=== PATIENT | female | born 1940 | race Caucasian/White ===

== ENCOUNTER 2019-04-18 19:49 | Inpatient (IN) | payer MEDICARE ==
[~2019-04-18] VITALS: Ht 168.9 cm; Wt 87.2 kg
[2019-04-18] MEDS ORDERED: SODIUM CHLORIDE FLUSH 10ML SYR IVF ONE (20:00)
--- NOTE | 2019-04-18 20:02 | NUR ---
BIB AMBULANCE FROM [place] FOR SUBDURAL HEMATOMA THAT HAPPENED ABOUT 1-2 WEEKS AGO. GENERAL WEAKNESS X2 WEEKS AND SLIPPING OUT OF BED WHILE ATTEMPTING TO TRANSFER. PT STATES SHE HAS NOT LOST CONSCIOUSNESS. CONNECTED TO MONITORING. FALL PRECAUTIONS IN PLACE. CALL LIGHT IN REACH.
[2019-04-18 20:21] LABS: BASOPHILS # (AUTO) 0.02 x10^3/uL (0-0.1); BASOPHILS % (AUTO) 0 % (0-1); EOSINOPHILS # (AUTO) 0.04 x10^3/uL (0-0.4); EOSINOPHILS % (AUTO) 1 % (1-7); LYMPHOCYTES # (AUTO) 1.18 x10^3/uL (1-3.4); LYMPHOCYTES % (AUTO) 21 % (22-44); MD NO; MEAN CORPUSCULAR HEMOGLOBIN 30.6 pg (27.0-34.8); MEAN CORPUSCULAR HGB CONC 33.1 g/dL (32.4-35.8); MEAN CORPUSCULAR VOLUME 92.5 fL (80-100); MEAN PLATELET VOLUME 7.1 fL (7.4-10.4); MONOCYTES # (AUTO) 0.38 x10^3/uL (0.2-0.8); MONOCYTES % (AUTO) 7 % (2-9); NEUTROPHILS # (AUTO) 4.05 x10^3/uL (1.8-6.8); NEUTROPHILS % (AUTO) 72 % (42-75); PLATELET COUNT 187 x10^3/uL (130-400); RED BLOOD COUNT 3.45 x10^6/uL (3.82-5.3); RED CELL DISTRIBUTION WIDTH 17.3 % (9.6-15.2)
[2019-04-18 20:29] LABS: INTERNATIONAL NORMALIZED RATIO 1.01 (0.93-1.1); PROTHROMBIN TIME 10.6 Seconds (9.6-11.5)
[2019-04-18 20:30] LABS: ALBUMIN 3.1 g/dL (3.4-5.0); ANION GAP 4 mmol/L (5-15); CALCIUM 8.4 mg/dL (8.5-10.1); CHLORIDE 109 mmol/L (98-107); CREATININE 1.16 mg/dL (0.55-1.02)
--- NOTE | 2019-04-18 20:32 | NUR ---
ALL RESULTS ARE BACK AT THIS TIME. CHART UP FOR RECHECK.
--- NOTE | 2019-04-18 20:59 | NUR ---
PT PASSED SWALLOW EVAL. GIVEN SANDWICH FOR DINNER. NADN. CALL LIGHT IN REACH.
--- NOTE | 2019-04-18 21:59 | NUR ---
REPORT GIVEN TO JAROCHO MUÑOZ
[2019-04-18] MEDS ORDERED: SODIUM CHLORIDE FLUSH 10ML SYR IVF PRN (22:00)
[2019-04-18] MEDS ORDERED: LABETALOL 5MG/ML, 20ML IV PRN (22:30)
[2019-04-18] MEDS ORDERED: POLYETHYLENE GLYCOL 17 GM PACKET PO PRN (22:30)
[2019-04-18] MEDS ORDERED: BISACODYL 10 MG SUPP PR PRN (22:30)
[2019-04-18] MEDS ORDERED: ONDANSETRON 2MG/ML, 2ML IVPush PRN (22:30)
[2019-04-18] MEDS ORDERED: DEXAMETHASONE 4 MG/ML, 1ML IV ONE (23:00)
[2019-04-18] MEDS ORDERED: PLEASE ENTER ALLERGIES MC SCH ×2 (23:00)
[2019-04-18] MEDS: LEVETIRACETAM 500 MG in SODIUM CHLORIDE 0.9% 100 ML IV SCH (23:40)
[2019-04-18 23:48] LABS: HEMOGLOBIN A1C 5.5 % (4.2-6.3)
[2019-04-19] MEDS ORDERED: [UNRECOGNIZED DRUG - REMARK] MC SCH (01:30)
[2019-04-19 02:11] VITALS: BP 112/48
[2019-04-19] MEDS ORDERED: BUPIVACAINE/PF 0.5% ONE (04:11)
[2019-04-19] MEDS ORDERED: BACITRACIN 50,000 UNIT ONE (04:12)
[2019-04-19] MEDS ORDERED: EPINEPHRINE 1 MG/ML, 1ML ONE (04:12)
[2019-04-19] MEDS ORDERED: THROMBIN SPRAY 20,000 UNIT SPRAY TP ONE (04:22)
[2019-04-19 04:46] LABS: BASOPHILS # (AUTO) 0.01 x10^3/uL (0-0.1); BASOPHILS % (AUTO) 0 % (0-1); EOSINOPHILS # (AUTO) 0.03 x10^3/uL (0-0.4); EOSINOPHILS % (AUTO) 1 % (1-7); LYMPHOCYTES # (AUTO) 0.62 x10^3/uL (1-3.4); LYMPHOCYTES % (AUTO) 11 % (22-44); MD NO; MEAN CORPUSCULAR HEMOGLOBIN 30.8 pg (27.0-34.8); MEAN CORPUSCULAR HGB CONC 32.9 g/dL (32.4-35.8); MEAN CORPUSCULAR VOLUME 93.8 fL (80-100); MEAN PLATELET VOLUME 7.3 fL (7.4-10.4); MONOCYTES # (AUTO) 0.13 x10^3/uL (0.2-0.8); MONOCYTES % (AUTO) 2 % (2-9); NEUTROPHILS # (AUTO) 4.71 x10^3/uL (1.8-6.8); NEUTROPHILS % (AUTO) 86 % (42-75); PLATELET COUNT 192 x10^3/uL (130-400); RED BLOOD COUNT 3.47 x10^6/uL (3.82-5.3); RED CELL DISTRIBUTION WIDTH 17.3 % (9.6-15.2)
[2019-04-19 04:56] LABS: ANION GAP 5 mmol/L (5-15); CALCIUM 8.4 mg/dL (8.5-10.1); CHLORIDE 110 mmol/L (98-107); CREATININE 1.24 mg/dL (0.55-1.02)
[2019-04-19] MEDS ORDERED: FENTANYL PF 250 MCG/5ML ONE (06:47)
[2019-04-19] MEDS: INSULIN LISPRO 100 UNITS/ML, PEN SQ-INSULIN SCH ×4 (07:00→21:00)
[2019-04-19] MEDS ORDERED: VASOPRESSIN 20 UNIT/ML, 1ML ONE (07:02)
[2019-04-19] MEDS ORDERED: PHENYLEPHRINE 10 MG/ML ONE (07:02)
[2019-04-19] MEDS ORDERED: OXYcodone/APAP 5/325MG TABLET PO PRN (07:30)
[2019-04-19] MEDS: CEFAZOLIN PMX 1GM/50ML 50 ML IVPB SCH ×2 (07:30→15:51)
[2019-04-19] MEDS ORDERED: ENALAPRILAT 1.25 MG/ML, 2ML IV PRN (07:30)
[2019-04-19] MEDS ORDERED: HYDROcodone/APAP 5/325 TABLET PO PRN (07:30)
[2019-04-19] MEDS ORDERED: LEVETIRACETAM 1,000 MG in SODIUM CHLORIDE 0.9% 100 ML IV ONE (08:00)
[2019-04-19] MEDS ORDERED: HYDROmorphone 2 MG/ML, 1ML IVPush PRN (09:00)
[2019-04-19] MEDS ORDERED: CEFAZOLIN 1,000 MG ONE (09:00)
[2019-04-19] MEDS ORDERED: hydrALAzine 20 MG/ML, 1ML IV PRN (09:00)
[2019-04-19] MEDS ORDERED: NEOSTIGMINE 1 MG/ML, 10ML ONE (09:00)
[2019-04-19] MEDS ORDERED: DEXAMETHASONE 4 MG/ML, 1ML ONE (09:00)
[2019-04-19] MEDS ORDERED: SUCCINYLCHOLINE 20 MG/ML, 10ML ONE (09:00)
[2019-04-19] MEDS ORDERED: PROPOFOL 10 MG/ML, 20ML ONE (09:00)
[2019-04-19] MEDS ORDERED: ROCURONIUM 10MG/ML,5ML ONE (09:00)
[2019-04-19] MEDS ORDERED: ONDANSETRON 2MG/ML, 2ML ONE (09:00)
[2019-04-19] MEDS: SENNA/DOCUSATE TABLET PO SCH (09:00)
[2019-04-19] MEDS ORDERED: OXYcodone 5 MG/5 ML ORAL.SOL UDC PO PRN (09:00)
[2019-04-19] MEDS ORDERED: GLYCOPYRROLATE 0.2MG/1ML, 5ML ONE (09:00)
[2019-04-19] MEDS ORDERED: LABETALOL 5MG/ML, 20ML IV PRN (09:00)
[2019-04-19] MEDS ORDERED: MEPERIDINE/PF 25MG/ML,1ML IVPush PRN (09:00)
[2019-04-19] MEDS ORDERED: FENTANYL PF 100 MCG/2ML IV PRN (09:00)
[2019-04-19 11:19] LABS: MICROSCOPIC INDICATED
[2019-04-19 11:20] LABS: CULTURE INDICATED? YES
[2019-04-19] MEDS: LEVETIRACETAM 500 MG in SODIUM CHLORIDE 0.9% 100 ML IV SCH ×2 (11:41→22:47)
[2019-04-19] MEDS: D5%-0.9% NACL+KCL 20MEQ 1,000 ML IV SCH (13:46)
[2019-04-19] MEDS: CEFTRIAXONE PMX 1GM/50ML 50 ML IV SCH (15:51)
[2019-04-19] MEDS: ACETAMINOPHEN 325 MG TABLET PO PRN ×2 (15:59→22:47)
[2019-04-20] MEDS: D5%-0.9% NACL+KCL 20MEQ 1,000 ML IV SCH (00:33)
[2019-04-20 04:43] LABS: BASOPHILS % (AUTO) 0 % (0-1); EOSINOPHILS # (AUTO) 0.03 x10^3/uL (0-0.4); EOSINOPHILS % (AUTO) 0 % (1-7); LYMPHOCYTES # (AUTO) 0.59 x10^3/uL (1-3.4); LYMPHOCYTES % (AUTO) 7 % (22-44); MD NO; MEAN CORPUSCULAR HEMOGLOBIN 31.1 pg (27.0-34.8); MEAN CORPUSCULAR HGB CONC 32.9 g/dL (32.4-35.8); MEAN CORPUSCULAR VOLUME 94.7 fL (80-100); MEAN PLATELET VOLUME 7.6 fL (7.4-10.4); MONOCYTES # (AUTO) 0.42 x10^3/uL (0.2-0.8); MONOCYTES % (AUTO) 5 % (2-9); NEUTROPHILS # (AUTO) 6.98 x10^3/uL (1.8-6.8); NEUTROPHILS % (AUTO) 87 % (42-75); PLATELET COUNT 183 x10^3/uL (130-400); RED BLOOD COUNT 2.86 x10^6/uL (3.82-5.3); RED CELL DISTRIBUTION WIDTH 17.3 % (9.6-15.2)
[2019-04-20 04:49] LABS: ANION GAP 6 mmol/L (5-15); CALCIUM 7.7 mg/dL (8.5-10.1); CHLORIDE 115 mmol/L (98-107)
[2019-04-20] MEDS: INSULIN LISPRO 100 UNITS/ML, PEN SQ-INSULIN SCH (06:28)
[2019-04-20] MEDS: ACETAMINOPHEN 325 MG TABLET PO PRN ×4 (06:52→23:14)
[2019-04-20] MEDS: SENNA/DOCUSATE TABLET PO SCH (09:47)
[2019-04-20] MEDS: SODIUM CHLORIDE 0.9% 1,000 ML IV SCH ×2 (09:51→23:16)
[2019-04-20] MEDS: LEVETIRACETAM 500 MG in SODIUM CHLORIDE 0.9% 100 ML IV SCH ×2 (11:11→23:15)
[2019-04-20] MEDS: CEFTRIAXONE PMX 1GM/50ML 50 ML IV SCH (14:11)
[2019-04-21 04:43] LABS: BASOPHILS # (AUTO) 0.04 x10^3/uL (0-0.1); BASOPHILS % (AUTO) 1 % (0-1); EOSINOPHILS # (AUTO) 0.09 x10^3/uL (0-0.4); EOSINOPHILS % (AUTO) 2 % (1-7); LYMPHOCYTES % (AUTO) 20 % (22-44); MD NO; MEAN CORPUSCULAR HEMOGLOBIN 31.1 pg (27.0-34.8); MEAN CORPUSCULAR HGB CONC 32.8 g/dL (32.4-35.8); MEAN CORPUSCULAR VOLUME 94.6 fL (80-100); MEAN PLATELET VOLUME 7.2 fL (7.4-10.4); MONOCYTES # (AUTO) 0.48 x10^3/uL (0.2-0.8); MONOCYTES % (AUTO) 8 % (2-9); NEUTROPHILS # (AUTO) 4.47 x10^3/uL (1.8-6.8); NEUTROPHILS % (AUTO) 70 % (42-75); PLATELET COUNT 186 x10^3/uL (130-400); RED BLOOD COUNT 2.95 x10^6/uL (3.82-5.3); RED CELL DISTRIBUTION WIDTH 17.1 % (9.6-15.2)
[2019-04-21 04:54] LABS: CHLORIDE 115 mmol/L (98-107)
[2019-04-21 04:56] LABS: ANION GAP 4 mmol/L (5-15); CALCIUM 7.5 mg/dL (8.5-10.1); CREATININE 1.14 mg/dL (0.55-1.02)
[2019-04-21] MEDS: SENNA/DOCUSATE TABLET PO SCH (08:37)
[2019-04-21] MEDS: LEVETIRACETAM 500 MG in SODIUM CHLORIDE 0.9% 100 ML IV SCH ×2 (11:06→23:14)
[2019-04-21 13:22] VITALS: BP 131/75
[2019-04-21] MEDS: CEFTRIAXONE PMX 1GM/50ML 50 ML IV SCH (14:30)
[2019-04-21 19:10] VITALS: BP 154/72
[2019-04-21] MEDS: ACETAMINOPHEN 325 MG TABLET PO PRN (20:15)
[2019-04-22 00:21] VITALS: BP 144/77
[2019-04-22 05:59] LABS: ANION GAP 6 mmol/L (5-15); CALCIUM 7.8 mg/dL (8.5-10.1); CHLORIDE 112 mmol/L (98-107)
[2019-04-22 06:00] LABS: CREATININE 1.12 mg/dL (0.55-1.02)
[2019-04-22 06:02] LABS: BASOPHILS # (AUTO) 0.02 x10^3/uL (0-0.1); BASOPHILS % (AUTO) 0 % (0-1); EOSINOPHILS # (AUTO) 0.15 x10^3/uL (0-0.4); EOSINOPHILS % (AUTO) 3 % (1-7); LYMPHOCYTES # (AUTO) 1.15 x10^3/uL (1-3.4); LYMPHOCYTES % (AUTO) 23 % (22-44); MD NO; MEAN CORPUSCULAR HEMOGLOBIN 31.3 pg (27.0-34.8); MEAN CORPUSCULAR HGB CONC 33.1 g/dL (32.4-35.8); MEAN CORPUSCULAR VOLUME 94.5 fL (80-100); MEAN PLATELET VOLUME 7.1 fL (7.4-10.4); MONOCYTES % (AUTO) 8 % (2-9); NEUTROPHILS # (AUTO) 3.35 x10^3/uL (1.8-6.8); NEUTROPHILS % (AUTO) 66 % (42-75); PLATELET COUNT 183 x10^3/uL (130-400); RED BLOOD COUNT 3.03 x10^6/uL (3.82-5.3); RED CELL DISTRIBUTION WIDTH 16.9 % (9.6-15.2)
[2019-04-22 06:42] VITALS: BP 133/74
[2019-04-22] MEDS: SENNA/DOCUSATE TABLET PO SCH (07:55)
[2019-04-22] MEDS: ACETAMINOPHEN 325 MG TABLET PO PRN ×2 (07:57→22:48)
[2019-04-22] MEDS: LEVETIRACETAM 500 MG in SODIUM CHLORIDE 0.9% 100 ML IV SCH ×2 (11:41→23:30)
[2019-04-22] MEDS ORDERED: METF500T27 PO (13:49)
[2019-04-22] MEDS ORDERED: ASPI81TA45 PO (13:49)
[2019-04-22] MEDS ORDERED: LOSA25TA25 PO (13:49)
[2019-04-22] MEDS ORDERED: FERR324T5 PO (13:49)
[2019-04-22] MEDS ORDERED: ROSU20TA2 PO (13:49)
[2019-04-22] MEDS ORDERED: GLIP10TA13 PO (13:49)
[2019-04-22] MEDS ORDERED: METO25TA35 PO (13:49)
[2019-04-22 14:58] VITALS: BP 123/58
[2019-04-22] MEDS: CEFTRIAXONE PMX 1GM/50ML 50 ML IV SCH (15:55)
[2019-04-22 19:35] VITALS: BP 138/80
[2019-04-23 03:13] VITALS: BP 130/83
[2019-04-23 06:19] LABS: BASOPHILS # (AUTO) 0.03 x10^3/uL (0-0.1); BASOPHILS % (AUTO) 1 % (0-1); EOSINOPHILS # (AUTO) 0.14 x10^3/uL (0-0.4); EOSINOPHILS % (AUTO) 3 % (1-7); LYMPHOCYTES # (AUTO) 1.04 x10^3/uL (1-3.4); LYMPHOCYTES % (AUTO) 20 % (22-44); MD NO; MEAN CORPUSCULAR HEMOGLOBIN 31.2 pg (27.0-34.8); MEAN CORPUSCULAR VOLUME 94.6 fL (80-100); MONOCYTES # (AUTO) 0.32 x10^3/uL (0.2-0.8); MONOCYTES % (AUTO) 6 % (2-9); NEUTROPHILS # (AUTO) 3.74 x10^3/uL (1.8-6.8); NEUTROPHILS % (AUTO) 71 % (42-75); PLATELET COUNT 198 x10^3/uL (130-400); RED BLOOD COUNT 3.19 x10^6/uL (3.82-5.3); RED CELL DISTRIBUTION WIDTH 16.7 % (9.6-15.2)
[2019-04-23 06:31] LABS: ANION GAP 7 mmol/L (5-15); CHLORIDE 109 mmol/L (98-107)
[2019-04-23 06:32] LABS: CREATININE 1.09 mg/dL (0.55-1.02)
[2019-04-23 07:25] VITALS: BP 119/72
[2019-04-23] MEDS: SENNA/DOCUSATE TABLET PO SCH (08:07)
[2019-04-23] MEDS ORDERED: METOPROLOL TARTRATE 25 MG TABLET PO SCH (09:00)
[2019-04-23] MEDS ORDERED: LOSARTAN 25MG TABLET PO SCH (09:00)
[2019-04-23] MEDS ORDERED: metFORMIN XR 500 MG TAB.ER.24H PO SCH (09:00)
[2019-04-23] MEDS: LEVETIRACETAM 500 MG in SODIUM CHLORIDE 0.9% 100 ML IV SCH (11:31)
[2019-04-23 12:47] VITALS: BP 139/79
[2019-04-23] MEDS ORDERED: GLIP10TA13 PO (14:24)
[2019-04-23] MEDS ORDERED: LEVE500T53 PO (14:25)
[2019-04-23] MEDS: CEFTRIAXONE PMX 1GM/50ML 50 ML IV SCH (14:42)
[2019-04-23] MEDS ORDERED: ATORVASTATIN 40 MG TABLET PO SCH (21:00)
[2019-04-23] MEDS ORDERED: TEMPLATE NON-FORMULARY MED. (Rosuvastatin Calcium** (Crestor**) 20 MG) PO SCH (21:00)
== END 2019-04-23 16:50 | disposition home health service (06) | DRG 27 ==
LOC: ED 20:35 → EDIP 20:40 → ED 20:40 → CCU 22:23 → 4WST 04-21 12:15 → DCLOUNGE 04-23 16:42
PROVIDERS: ADMIT Family Medicine; ATTEND Hospitalist
PROC: 00C40ZZ Extirpation of Matter from Intracranial Subdural Space, Open Approach (ICD-10-PCS; principal; 2019-04-19 07:00)
DX: S06.5X0A Traumatic subdural hemorrhage without loss of consciousness, initial encounter (principal); N18.3 Chronic kidney disease, stage 3 (moderate); D64.9 Anemia, unspecified; E11.22 Type 2 diabetes mellitus with diabetic chronic kidney disease; E11.40 Type 2 diabetes mellitus with diabetic neuropathy, unspecified; E78.00 Pure hypercholesterolemia, unspecified; E78.5 Hyperlipidemia, unspecified; I12.9 Hypertensive chronic kidney disease with stage 1 through stage 4 chronic kidney disease, or unspecified chronic kidney disease; Z85.42 Personal history of malignant neoplasm of other parts of uterus; Z87.440 Personal history of urinary (tract) infections; Z90.49 Acquired absence of other specified parts of digestive tract; Z90.710 Acquired absence of both cervix and uterus; Z95.2 Presence of prosthetic heart valve; Z91.041 Radiographic dye allergy status; W18.39XA Other fall on same level, initial encounter; Y93.89 Activity, other specified; Y92.89 Other specified places as the place of occurrence of the external cause; Y99.8 Other external cause status
CPT/HCPCS: 36415; 70450; 80048; 81001; 82040; 82550; 82962; 83036; 83605; 83735; 84100; 85025; 85610; 85730; 86850; 86900; 87077; 87081; 87086; 87186; 99285; C1713; G0378; J0171; J0690; J0696; J1100; J1953; J2405; J2704; J2710; J3010; C1781; J0330; J1815; J2370; J3480; J7030

== ENCOUNTER → 2019-05-03 | Outpatient (CLI) | payer MEDICARE ==
[~2019-05-03] MED LIST: ASPI81TA45 PO; FERR324T5 PO; GLIP10TA13 PO; LEVE500T53 PO; LOSA25TA25 PO; METF500T27 PO; METO25TA35 PO; ROSU20TA2 PO
== END | disposition home or self-care (01) ==
LOC: EDSTATUS 10:30 → RAD 10:39
PROVIDERS: ATTEND Neurological Surgery
DX: I62.00 Nontraumatic subdural hemorrhage, unspecified (principal); Z98.890 Other specified postprocedural states; Z87.891 Personal history of nicotine dependence
CPT/HCPCS: 70450

== ENCOUNTER 2019-06-03 09:52 | Outpatient (CLI) | payer MEDICARE | END 2019-06-03 23:59 | disposition home or self-care (01) | LOC: RAD 09:52 | PROVIDERS: ATTEND Nurse Practitioner Critical Care Medicine | DX: I62.00 Nontraumatic subdural hemorrhage, unspecified (principal); G40.909 Epilepsy, unspecified, not intractable, without status epilepticus; Z87.891 Personal history of nicotine dependence | CPT/HCPCS: 70450 ==